=== PATIENT | female | born 1945 | race Caucasian/White ===

== ENCOUNTER 2016-12-04 23:39 | Emergency (ER) | payer OTHER ==
[2016-12-05 00:06] VITALS: TEMP 98.4; BMI 27.1
--- NOTE | 2016-12-05 01:13 | PDOC ---
History of Present Illness - General Chief Complaint: Allergic Reaction Stated Complaint: ALLERGIC REACTION Time Seen by Provider: 12/05/16 00:28 History Source: Patient Exam Limitations: No Limitations - History of Present Illness Initial Comments: 12/05/16 01:07 Patient is a 71-year-old female with history of cardiomegaly, and aortic stenosis, chronic back pain, plastic surgery legs complaining off rash to the right foot and ankle was noticed at 7 PM tonight. States she was at the swimming pool today and she felt something hit her right ankle. She did not notice if she was stung by a bee or an insect. However she went home and went to bed, about 7:00 PM felt it itching which redness. She is here to check to see if there is a bee stinger because she knows she is very allergic to bee stings. She denies any shortness of breath, any throat swelling, tongue swelling , chest pain. PMD: Mandy PMH: As above PSOCHX: Negative cigarettes negative alcohol negative drugs ALL: NKDA GENERAL/CONSTITUTIONAL: [No fever or chills. No weakness. No weight change.] HEAD, EYES, EARS, NOSE AND THROAT: [No change in vision. No ear pain or discharge. No sore throat.] CARDIOVASCULAR: [No chest pain or shortness of breath.] RESPIRATORY: [No cough, wheezing, or hemoptysis.] GASTROINTESTINAL: [No nausea, vomiting, diarrhea or constipation. No rectal bleeding.] GENITOURINARY: [No dysuria, frequency, or change in urination.] MUSCULOSKELETAL: [No joint or muscle swelling or pain. No neck or back pain.] SKIN AND BREASTS: (+) rash or easy bruising.] NEUROLOGIC: [No headache, vertigo, loss of consciousness, or loss of sensation.] PSYCHIATRIC: [No depression or anxiety.] ENDOCRINE: [No increased thirst. No abnormal weight change.] HEMATOLOGIC/LYMPHATIC: [No anemia, easy bleeding, or history of blood clots.] ALLERGIC/IMMUNOLOGIC: [No hives or skin allergy. No latex allergy.] GENERAL: [The patient is awake, alert, and fully oriented, in no acute distress. ] HEAD: [Normal with no signs of trauma.] EYES: [Pupils equal, round and reactive to light, extraocular movements intact, sclera anicteric, conjunctiva clear.] ENT: [Ears normal, nares patent, oropharynx clear without exudates. Moist mucous membranes.] NECK: [Normal range of motion, supple without lymphadenopathy, JVD, or masses.] LUNGS: [Breath sounds equal, clear to auscultation bilaterally. No wheezes, and no crackles.] HEART: [Regular rate and rhythm, normal S1 and S2 without murmur, rub.] ABDOMEN: [Soft, nontender, normoactive bowel sounds. No guarding, no rebound. No masses.] EXTREMITIES: [Normal range of motion, no edema. No clubbing or cyanosis. No cords, erythema, or tenderness.] NEUROLOGICAL: [Cranial nerves II through XII grossly intact. Normal speech, normal gait.] PSYCH: [Normal mood, normal affect.] SKIN: [Warm, Dry, normal turgor, hive like erythematous rash over the right ankle, (-) tenderness to the right ankle, (-) excoriations. Past History - Past Medical History Allergies/Adverse Reactions: Allergies Allergy/AdvReac Type Severity Reaction Status Date / Time bee pollen Allergy Verified 12/05/16 00:03 Home Medications: Ambulatory Orders Atorvastatin Ca [Lipitor (*)] 10 mg NR DAILY 02/24/12 Raloxifene HCl [Evista] 60 mg PO DAILY 02/24/12 Diphenhydramine HCl [Benadryl -] 25 mg PO Q6H #28 capsule 12/05/16 Hydrocortisone 1% Cream [Hytone 1% Cream -] 1 applic TP BID #1 tube 12/05/16 Cardiac Disorders: Yes Hypercholesterolemia: Yes Other medical history: back problems - Psycho/Social/Smoking Cessation Hx Anxiety: No Suicidal Ideation: No Smoking Status: No Smoking History: Never smoked Number of Cigarettes Smoked Daily: 0 *Physical Exam - Vital Signs Last Vital Signs Temp Pulse Resp BP Pulse Ox 98.4 F 69 18 151/109 98 12/05/16 00:03 12/05/16 00:03 12/05/16 00:03 12/05/16 00:03 12/05/16 00:03 Medical Decision Making - Medical Decision Making 12/05/16 01:13 Patient is a 71-year-old female with history of cardiomegaly, and aortic stenosis, chronic back pain, plastic surgery legs complaining off rash to the right foot and ankle was noticed at 7 PM tonight which could possible be and contact allergy. No signs of an infectious process. Will give benadryl. I discussed the physical exam findings, ancillary test results and final diagnoses with the patient. I answered all of the patient's questions. The patient was satisfied with the care received and felt comfortable with the discharge plan and treatment plan. The Patient agrees to follow up with the primary care physician within 24-72 hours. *DC/Admit/Observation/Transfer Diagnosis at time of Disposition: Contact allergic reaction - Discharge Dispostion Disposition: HOME Condition at time of disposition: Stable - Prescriptions Prescriptions: Diphenhydramine HCl [Benadryl -] 25 mg PO Q6H #28 capsule Hydrocortisone 1% Cream [Hytone 1% Cream -] 1 applic TP BID #1 tube - Referrals Referrals: Sharon Galvan MD [Primary Care Provider] - - Patient Instructions Printed Discharge Instructions: DI for Contact Dermatitis Additional Instructions: Your Discharge Instructions: You must call primary care physician within 24 hours to arrange follow-up. Return to the Emergency Department with any new, persistent or worsening symptoms, for fever, chills, SOB, dizziness or any other concerning changes that may occur.
[2016-12-05] MEDS ORDERED: diphenhydrAMINE HCL 25 MG CAPSULE (FP) PO ONE ×2 (01:17→01:36)
[2016-12-05 03:13] VITALS: BP 190/92; PULSE 59
== END 2016-12-05 03:10 | disposition home or self-care (01) ==
LOC: JER 23:39
DX: L23.9 Allergic contact dermatitis, unspecified cause (principal); M54.89 Other dorsalgia; G89.29 Other chronic pain; I35.0 Nonrheumatic aortic (valve) stenosis
CPT/HCPCS: 99282-25

== ENCOUNTER 2018-12-09 03:58 | Emergency (ER) | payer OTHER ==
[2018-12-09 04:10] VITALS: BP 151/77; PULSE 83; TEMP 98.3; BMI 25.8
--- NOTE | 2018-12-09 04:24 | PDOC ---
Attending Attestation - Resident Resident Name: Oly Perez - ED Attending Attestation I have performed the following: I have examined & evaluated the patient, The case was reviewed & discussed with the resident, I agree w/resident's findings & plan - HPI HPI: 12/09/18 06:48 Pt comes with bee sting, and wantds to make sure she has no stinger inside. - Physicial Exam PE: 12/09/18 06:48 Agree with resident exam. Pt has left upper inner arm redness and rash surrounding a bee sting. Pt has clear lungs and abd NT ND. Pt has no pitting edema of the legs bilat. Pt has no other complaints. - Medical Decision Making 12/09/18 06:50 Home with bacitracin ointment to the area. Pt received benadryl and decadron here and she has keflex at home that she can take prophylactically to prevent cellulitis of the inner arm
--- NOTE | 2018-12-09 05:05 | PDOC ---
History of Present Illness - General Chief Complaint: Bite Stated Complaint: BURNING SENSATION S/P BEE STING Time Seen by Provider: 12/09/18 04:24 - History of Present Illness Initial Comments: 12/09/18 05:11 71yo F hx cardiomegaly, aortic stenosis, chronic back pain, and bee allergy c/o L arm burning s/p bee sting at 1600 yesterday. Pt states she was at the pool and saw a bee sting her on her proximal underarm. She felt it burning so she took a benadryl. She did not use her epipen. She went home and went to be and came now because she thought there would be less of a wait in the ED. Pt believes the stinger might still be in her arm. Denies SOB, throat swelling, throat itching, rash, tongue swelling, difficulty speaking or swallowing, dizziness, CESAR, CP, abdominal pain, N/V, F/C, D/C, blood in stool, hematuria, dysuria, numbness/tingling, weakness. 12/09/18 05:14 Past History - Past Medical History Allergies/Adverse Reactions: Allergies Allergy/AdvReac Type Severity Reaction Status Date / Time bee pollen Allergy Verified 12/09/18 04:10 Home Medications: Ambulatory Orders Atorvastatin Ca [Lipitor (*)] 10 mg NR DAILY 02/24/12 Raloxifene HCl [Evista] 60 mg PO DAILY 02/24/12 Diphenhydramine HCl [Benadryl -] 25 mg PO Q6H #28 capsule 12/05/16 Hydrocortisone 1% Cream [Hytone 1% Cream -] 1 applic TP BID #1 tube 12/05/16 Aspirin [Adult Aspirin Regimen] 81 mg PO DAILY 12/09/18 Epinephrine [Epipen 2-Arjun] 0.3 mg IJ ASDIR 12/09/18 Cardiac Disorders: Yes COPD: No Hypercholesterolemia: Yes - Surgical History Cardiac Surgery: Yes - Suicide/Smoking/Psychosocial Hx Smoking Status: No Smoking History: Never smoked Number of Cigarettes Smoked Daily: 0 Review of Systems - Review of Systems Comments:: 12/09/18 05:39 Constitutional: Negative for chills, fever, fatigue. HENT: Negative for sore throat, rhinorrhea, congestion. Eyes: Negative for visual disturbance. Respiratory: Negative for shortness of breath, cough, and wheezing. Cardiovascular: Negative for chest pain, palpitations, and leg swelling. Gastrointestinal: Negative for abdominal pain, blood in stool, constipation, diarrhea, nausea, and vomiting. Genitourinary: Negative for dysuria, flank pain, and hematuria. Musculoskeletal: Negative for myalgias, back pain, and neck pain. Skin: Positive for erythema and itching surrounding bee sting on L underarm. Neurological: Negative for light-headedness, dizziness, syncope, weakness, numbness and headaches. Psychiatric/Behavioral: Negative for behavioral problems and confusion. *Physical Exam - Vital Signs Last Vital Signs Temp Pulse Resp BP Pulse Ox 98.3 F 83 18 151/77 100 12/09/18 04:08 12/09/18 04:08 12/09/18 04:08 12/09/18 04:08 12/09/18 04:08 - Physical Exam Comments: 12/09/18 05:39 Gen: Alert, NAD, comfortable-appearing. HEENT: PERRL, EOMI, MMM, NCAT. No conjunctival pallor. Sclera are non-icteric. Oropharynx is clear. CV: Regular rate and rhythm. No murmurs, rubs, or gallops. PULM: No resp distress. CTAB, no wheezes, rales, or rhonchi. ABD: soft, NT/ND, no rebound tenderness or guarding, no CVA tenderness. BACK: No TTP of c/t/l-spine. No step-offs or deformities. MSK: No bony deformities. 2+ pulses in all extremities. NEURO: AAOx3. PERRL. No gross CN deficits. Strength and sensation grossly intact throughout. EXTREMITIES: No cyanosis. No clubbing. No edema. No calf tenderness. PSYCH: Normal mood and thought pattern. SKIN: +area of erythema on proximal inferior LUE. Warm and dry. Normal capillary refill. No jaundice. Medical Decision Making - Medical Decision Making 12/09/18 05:14 71yo F hx cardiomegaly, aortic stenosis, chronic back pain, and bee allergy c/o L arm burning s/p bee sting at 1600 yesterday. Pt states she was at the pool and saw a bee sting her on her proximal underarm. She felt it burning so she took a benadryl. She did not use her epipen. She went home and went to be and came now because she thought there would be less of a wait in the ED. Pt believes the stinger might still be in her arm. Denies SOB, throat swelling, throat itching, rash, tongue swelling, difficulty speaking or swallowing, dizziness, CESAR, CP, abdominal pain, N/V, F/C, D/C, blood in stool, hematuria, dysuria, numbness/tingling, weakness. Hemodynamically stable, afebrile. Mild erythema of LUE surrounding presumed sting. Will give benadryl and decadron. No s/s concerning for anaphylaxis. -Benadryl and Decadron and Bacitracin -Dispo: d/c home w/PCP f/u *DC/Admit/Observation/Transfer Diagnosis at time of Disposition: Contact allergic reaction - Discharge Dispostion Disposition: HOME Condition at time of disposition: Stable Decision to Admit order: No - Referrals Referrals: Sharon Galvan MD [Primary Care Provider] - - Patient Instructions Printed Discharge Instructions: How to Care for an Insect Bite or Sting Additional Instructions: You have been seen in the Emergency Department for your bee sting. Your exam shows no signs concerning for anaphylaxis or an emergent condition. We have given you Benadryl to help with the burning sensation. Follow-up with your primary care doctor within 1 week. Return to the ED immediately if you experience chest pain, difficulty breathing , dizziness, tongue swelling, or any other new or worsening symptom. - Post Discharge Activity
[2018-12-09] MEDS ORDERED: diphenhydrAMINE HCL 25 MG CAPSULE (FP) PO ONE ×2 (05:19→05:31)
[2018-12-09] MEDS ORDERED: DEXAMETHASONE LIQUID 0.5 MG/5 ML PO ONE (05:19)
[2018-12-09] MEDS ORDERED: DEXAMETHASONE SOD PHOSPHATE 10 MG/1 ML VIAL ONE (05:31)
[2018-12-09] MEDS ORDERED: BACITRACIN 15 GM TUBE TOPICAL OINTMENT TP ONE (06:12)
[2018-12-09] MEDS ORDERED: BACITRACIN 0.9 GM PACKET ONE (06:17)
== END 2018-12-09 06:27 | disposition home or self-care (01) ==
LOC: JER 03:58
DX: T63.441A Toxic effect of venom of bees, accidental (unintentional), initial encounter (principal); M79.622 Pain in left upper arm; Y92.34 Swimming pool (public) as the place of occurrence of the external cause
CPT/HCPCS: 99281-25

== ENCOUNTER 2019-10-10 06:14 | Emergency (ER) | payer OTHER ==
[2019-10-10 06:36] VITALS: BP 177/78; PULSE 59; TEMP 98.1; BMI 27.9
--- NOTE | 2019-10-10 07:29 | PDOC ---
History of Present Illness - General Chief Complaint: Laceration Stated Complaint: INJURY Time Seen by Provider: 10/10/19 07:27 History Source: Patient Exam Limitations: No Limitations - History of Present Illness Initial Comments: HPI: This is a 74 y/o female with a PMH of a heart valve who presented to the ED because of a laceration to her left foot which occurred at approximately 9pm last night. She was stepping barefoot off a ladder and stepped down onto what she described as a blade from a mixer. She states the blade was not dirty, but doesn't remember the last time she had a tetanus shot. She admits to initial bleeding and pain. She cleaned the wound with alcohol and dressed it with a bandage. This morning it was still bleeding which concerned her and she decided to come into the ED. 10/10/19 08:22 ROS: (+): Pain to L. 3rd toe (-): Chills, sweats, fever, chest pain, SOB PMH: HTN, HLD, osteoporosis PSH: Heart Valve Social: Denies hx of tobacco use, denies etoh PE: General: She is alert and oriented x3. In no apparent distress. Cardiac: RRR Lungs: CTA bilaterally Extremities: 1cm linear non-erythematous epitheliazed lesion on plantar surface of left 3rd toe with dried blood). Capillary refill is < 2s No: Bruising, Change in Color, Erythema. Sensation intact and equal in toes and feet bilaterally. Full range of motion in toes bilaterally. Vascular: Dorsalis pedis pulses 2+ bilaterally MDM: This is a 74 y/o female presenting with a left third toe laceration that occurred last night. It is now epithelialized and cannot be sutured. The area will be cleaned and wrapped. She is unaware of her last Tdap, and so Boostrix will be given. Due to the location on the bottom of her foot, Keflex will be prescribed for 5 days. 10/10/19 09:01 Past History - Travel History Traveled outside of the country in the last 30 days: No Close contact w/someone who was outside of country & ill: No - Medical History Allergies/Adverse Reactions: Allergies Allergy/AdvReac Type Severity Reaction Status Date / Time bee pollen Allergy Verified 10/10/19 06:36 Home Medications: Ambulatory Orders Atorvastatin Ca [Lipitor (*)] 10 mg NR DAILY 02/24/12 Raloxifene HCl [Evista] 60 mg PO DAILY 02/24/12 Hydrocortisone 1% Cream [Hytone 1% Cream -] 1 applic TP BID #1 tube 12/05/16 Aspirin [Adult Aspirin Regimen] 81 mg PO DAILY 12/09/18 Epinephrine [Epipen 2-Arjun] 0.3 mg IJ ASDIR 12/09/18 Cephalexin [Keflex] 500 mg PO QID #20 capsule 10/10/19 Cholecalciferol (Vitamin D3) [Vitamin D3 -] 2,000 unit PO DAILY 10/10/19 Iron 1 mg PO DAILY 10/10/19 Metoprolol Succinate 25 mg PO Q3D 10/10/19 Cardiac Disorders: Yes COPD: No Hypercholesterolemia: Yes - Surgical History Cardiac Surgery: Yes (VALVE) - Immunization History Tetanus Status: Unknown - Psycho-Social/Smoking History Smoking Status: No Smoking History: Never smoked Number of Cigarettes Smoked Daily: 0 - Substance Abuse Hx (Audit-C & DAST Scrn) How often the patient has a drink containing alcohol: Never How often the patient has six or more drinks on one occasion: Never Score: In Men: 4 or > Positive; In Women: 3 or > Positive: 0 Screen Result (Pos requires Nsg. Audit-10AR): Negative In the last yr the pt used illegal drug/Rx for NonMed reason: No Score: Yes response is considered Positive: 0 Screen Result (Positive result requires Nsg. DAST-10): Negative Review of Systems - Review of Systems Constitutional: Yes: See HPI *Physical Exam - Vital Signs Last Vital Signs Temp Pulse Resp BP Pulse Ox 98.1 F 59 L 18 177/78 H 97 10/10/19 06:22 10/10/19 06:22 10/10/19 06:22 10/10/19 06:22 10/10/19 06:22 Discharge - Discharge Information Problems reviewed: Yes Clinical Impression/Diagnosis: Laceration Condition: Stable Disposition: HOME - Admission No - Additional Discharge Information Plan of Treatment: You presented to the ED due to a laceration on the bottom of your left third toe. The wound was cleaned and dressed. You were given your first dose of the antibiotic Keflex. A prescription was sent to your pharmacy. Keep area dry. Change bandage and reapply Bacitracin. Finish course of antibiotics. Follow-up with your primary care physician in the next 2-3 days. Return to the ED if worsening pain, discharge, fever, or chills. Prescriptions: Cephalexin [Keflex] 500 mg PO QID #20 capsule - Follow up/Referral Referrals: Sharon Galvan MD [Primary Care Provider] - - Patient Discharge Instructions Patient Printed Discharge Instructions: Skin Wound - Post Discharge Activity
[2019-10-10] MEDS ORDERED: DIPHTH,PERTUSS(ACELL),TET 0.5 ML DISP.SYRIN IM ONE (07:59)
--- NOTE | 2019-10-10 08:29 | PDOC ---
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 Denies other injuries. uncertain of last tetanus. - Physicial Exam PE: 10/10/19 08:20 Agree with resident exam. Patient is alert and oriented and in no acute distress. + 1 cm superficial laceration on L second toe. No other injuries. - Medical Decision Making 10/10/19 08:29 Pt presents to the ED with small and superficial laceration to the toe. Injury is almost 12 hours old--will not suture at this time given high risk of infection. Will irrigate wound and dress and discharge home with rx for outpatient antibiotics. Discharge - Discharge Information Problems reviewed: Yes Clinical Impression/Diagnosis: Laceration Condition: Stable Disposition: HOME - Additional Discharge Information Plan of Treatment: You presented to the ED due to a laceration on the bottom of your left third toe. The wound was cleaned and dressed. You were given your first dose of the antibiotic Keflex. A prescription was sent to your pharmacy. Keep area dry. Change bandage and reapply Bacitracin. Finish course of antibiotics. Follow-up with your primary care physician in the next 2-3 days. Return to the ED if worsening pain, discharge, fever, or chills. Prescriptions: Cephalexin [Keflex] 500 mg PO QID #20 capsule - Follow up/Referral Referrals: Sharon Galvan MD [Primary Care Provider] - - Patient Discharge Instructions Patient Printed Discharge Instructions: Skin Wound - Post Discharge Activity
[2019-10-10] MEDS ORDERED: CEPHALEXIN MONOHYDRATE 500 MG CAPSULE (UD) PO ONE (08:53)
[2019-10-10] MEDS ORDERED: BACITRACIN 0.9 GM PACKET TP ONE (08:55)
[2019-10-10] MEDS ORDERED: CEPHALEXIN MONOHYDRATE 500 MG CAPSULE (UD) ONE (09:05)
[2019-10-10] MEDS ORDERED: BACITRACIN 15 GM TUBE TOPICAL OINTMENT ONE (09:05)
== END 2019-10-10 09:00 | disposition home or self-care (01) ==
LOC: JER 06:14
DX: S91.115A Laceration without foreign body of left lesser toe(s) without damage to nail, initial encounter (principal); W26.8XXA Contact with other sharp object(s), not elsewhere classified, initial encounter
CPT/HCPCS: 99283-25

== ENCOUNTER 2021-01-11 20:51 | Emergency (ER) | payer OTHER ==
[2021-01-11 21:39] VITALS: PULSE 84; TEMP 99; BMI 28.3
[2021-01-11] MEDS ORDERED: VANCOMYCIN 1,000 MG in DEXTROSE 5%-WATER - 250 ML IVPB ONE (22:04)
[2021-01-11] MEDS ORDERED: VANCOMYCIN 1,000 MG VIAL (RESTRICTED TO ID ONLY) ONE (22:08)
[2021-01-11 23:38] VITALS: BP 176/80
== END 2021-01-12 | disposition home or self-care (01) ==
LOC: FER 20:51
DX: L03.114 Cellulitis of left upper limb (principal); W55.03XA Scratched by cat, initial encounter
CPT/HCPCS: 99284-25

== ENCOUNTER 2021-08-23 21:52 | Emergency (ER) | payer OTHER ==
[2021-08-23 22:09] VITALS: BP 163/85; PULSE 82; TEMP 98.7; BMI 29.0
[2021-08-23 22:14] LABS: HEMATOCRIT 38.1 % (32.4-45.2); HEMOGLOBIN 13.5 G/dL (10.7-15.3); MCH 32.8 pg (25.7-33.7); MCHC 35.4 g/dl (32.0-36.0); MEAN CELL VOLUME 92.7 fl (80-96); MEAN PLT VOLUME 7.9 fl (7.5-11.1); PLATELET COUNT 173.8 10^3/uL (134-434); RBC 4.11 10^6/uL (3.60-5.2); RDW 14.1 % (11.6-15.6); WHITE BLOOD COUNT 10.2 10^3/uL (4.0-10.8)
[2021-08-23 22:20] LABS: INR 0.98 (0.83-1.09); PROTHROMBIN TIME (PATIENT) 11.3 SEC (9.7-13.0)
[2021-08-23 22:23] LABS: ACTIVATED PTT 29.1 SECONDS (25.2-36.5)
[2021-08-23 22:26] LABS: CALCIUM 9.4 mg/dl (8.5-10); TOT PROT 7.1 g/dl (6.4-8.2)
[2021-08-23 22:36] LABS: PLATELET ESTIMATE ADEQUATE
[2021-08-23] MEDS ORDERED: APIXABAN 5 MG TABLET PO ONE (23:33)
== END 2021-08-24 00:08 | disposition home or self-care (01) ==
LOC: FER 21:52
DX: I82.401 Acute embolism and thrombosis of unspecified deep veins of right lower extremity (principal)
CPT/HCPCS: 36415; 80053; 85027; 85610; 85730; 93970-TC; 99284-25

== ENCOUNTER 2021-09-05 21:45 | Emergency (ER) | payer OTHER ==
[2021-09-05 22:07] VITALS: BP 169/89; PULSE 74; TEMP 98.1; BMI 28.9
== END 2021-09-05 22:22 | disposition home or self-care (01) ==
LOC: SUPCPDRO 21:45 → FER 21:45
DX: R60.0 Localized edema (principal)
CPT/HCPCS: 99281-25

== ENCOUNTER 2023-03-25 23:09 | Emergency (ER) | payer OTHER ==
[2023-03-25 23:15] VITALS: BP 154/87; PULSE 67; RESP 18; TEMP 98.2; BMI 28.8
== END 2023-03-26 00:15 | disposition home or self-care (01) ==
LOC: FER 23:09
PROC: 0HQKXZZ Repair Right Lower Leg Skin, External Approach (ICD-10-PCS; principal; 2023-03-25)
DX: S81.811A Laceration without foreign body, right lower leg, initial encounter (principal); X58.XXXA Exposure to other specified factors, initial encounter
CPT/HCPCS: 99282-25

== ENCOUNTER 2023-03-26 08:17 | Emergency (ER) | payer OTHER ==
[2023-03-26 08:52] VITALS: BP 148/71; PULSE 71; RESP 16; TEMP 98.1; BMI 28.8
== END 2023-03-26 08:52 | disposition home or self-care (01) ==
LOC: FER 08:17
DX: S81.811D Laceration without foreign body, right lower leg, subsequent encounter (principal); X58.XXXD Exposure to other specified factors, subsequent encounter
CPT/HCPCS: 99281-25